=== PATIENT | female | born 2000 | race Caucasian/White ===

== ENCOUNTER 2023-12-28 19:05 | Emergency (ER) | payer OTHER, SELFPAY ==
[2023-12-28 19:26] VITALS: BP 140/84; PULSE 83; RESP 18; TEMP 36.7; O2SAT 100
--- NOTE | 2023-12-28 19:34 | ED.EAR ---
HPI - Ear Problem General Chief complaint: Ear Stated complaint: bilateral ear pain Time Seen by Provider: 12/28/23 19:34 Source: patient Mode of arrival: ambulatory Limitations: no limitations History of Present Illness HPI Narrative: 23-year-old female presents with complaint of bilateral ear pain, frontal headache starting today. Afebrile. Has not taking any [id number] allergy or sinus medications to treat symptoms. All systems reviewed and negative except as noted above. Related Data Home Medications Medication Instructions Recorded Confirmed desogestrel 0.15 mg-ethinyl 1 tablet PO DAILY 12/28/23 12/28/23 estradiol 0.03 mg tablet (Apri) sertraline 50 mg tablet 50 mg PO DAILY 12/28/23 12/28/23 Allergies Allergy/AdvReac Type Severity Reaction Status Date / Time No Known Allergies Allergy Verified 12/28/23 19:26 Review of Systems Review of Systems: CONSTITUTIONAL: Denies fever, chills, or sweats. EYES: Denies visual changes, redness, or discharge. ENT: Denies rhinorrhea, congestion, sore throat . Reports bilateral ear pain. CARDIOVASCULAR: Denies chest pain, palpitations, or edema. RESPIRATORY: Denies cough or dyspnea. GASTROINTESTINAL: Denies abdominal pain, nausea, vomiting, or diarrhea. GENITOURINARY: Denies dysuria or hematuria. SKIN: Denies rash or itching. MUSCULOSKELETAL: Denies back pain, joint pain, or myalgia. NEUROLOGIC: Reports headache. Denies numbness, or weakness. PSYCHIATRIC: Denies anxiety or depression. All other systems reviewed are negative, except as documented in HPI. PMFSH Comments At time of signature, agree with nursing past medical, surgical, social and family history. There is no relevant family history pertinent to the presenting complaint. Exam Narrative: GENERAL: This is a well-nourished, well-developed patient, in no apparent distress. HEAD: normocephalic, atraumatic. EYES: PERRL. Sclera clear/white. Vision is grossly intact. EARS: External ears normal, auditory canals clear and without drainage, fluid bilateral TMs, erythema to left TM with mild bulging without perforation. Hearing grossly intact. NOSE: External nose normal with Clear nasal drainage, erythema and swelling to bilateral nares. THROAT: Mucous membranes moist, Erythema with postnasal drainage. NECK: Neck supple, non-tender without lymphadenopathy, masses or thyromegaly. CARDIOVASCULAR: Regular rate and rhythm without murmurs, gallops, or rubs. RESPIRATORY: Clear to auscultation. Breath sounds equal bilaterally. No wheezes, rales, or rhonchi. SKIN: warm, Dry, intact with no suspicious lesions or rash, good texture and turgor. NEURO: awake, alert, and oriented to person, place and time. There were no obvious focal neurologic abnormalities. EXTREMITIES: No joint tenderness, effusion, or edema noted. Course Course Level of Care: Express Care Visit Vital Signs Vital signs: Vital Signs Temperature 36.7 C 12/28/23 19:26 Pulse Rate 83 12/28/23 19:26 Respiratory Rate 18 12/28/23 19:26 Blood Pressure 140/84 12/28/23 19:26 Pulse Oximetry 100 12/28/23 19:26 Oxygen Delivery Room Air 12/28/23 19:26 Temperature 36.7 C 12/28/23 19:26 Pulse Rate 83 12/28/23 19:26 Respiratory Rate 18 12/28/23 19:26 Blood Pressure 140/84 12/28/23 19:26 Pulse Oximetry 100 12/28/23 19:26 Oxygen Delivery Room Air 12/28/23 19:26 Reviewed Medical Decision Making MDM Narrative Medical decision making narrative: Patient is aware of diagnosis, understands and agrees to treatment plan. Anticipatory guidance given. Patient agrees to follow-up as directed and is aware of reasons to seek care at the emergency department. Portions of this record may have been created with voice recognition software Vital Signs Vital Signs: Vital Signs Temperature 36.7 C 12/28/23 19:26 Pulse Rate 83 12/28/23 19:26 Respiratory Rate 18 12/28/23 19:26 Blood Pressure
== END 2023-12-28 19:46 | disposition home or self-care (01) ==
PROVIDERS: Emergency Provider Nurse Practitioner Family; PCP Hospitalist
DX: J01.90 Acute sinusitis, unspecified (principal); H65.03 Acute serous otitis media, bilateral; F41.9 Anxiety disorder, unspecified
CPT/HCPCS: 99213; G0463